=== PATIENT | male | born 1945 | race Caucasian/White ===

== ENCOUNTER 2017-04-26 12:36 | Observation (INO) | payer MEDICARE ==
[2017-04-26 13:13] VITALS: BMI 33.1
[2017-04-26 13:45] LABS: BASO % 0.3 % (0.0-2.0); EOS % 0.1 % (0.0-4.0); HEMATOCRIT 45.2 % (35.0-51.0); LYMPH # 0.8 K/uL (1.0-4.3); LYMPH % 10.2 % (20.0-40.0); MEAN CELL VOLUME 86.2 fL (80.0-94.0); MEAN CORPUSCULAR HEMOGLOBIN 28.6 pg (27.0-31.0); MEAN CORPUSCULAR HGB CONC 33.1 g/dL (33.0-37.0); MEAN PLATELET VOLUME 9.5 fL (7.2-11.7); MONO # 0.4 K/uL (0.0-0.8); MONO % 4.9 % (0.0-10.0); NRBC % 0.1 % (0.0-2.0); RED CELL DISTRIBUTION WIDTH 14.2 % (11.5-14.5); WHITE BLOOD COUNT 7.9 K/uL (4.8-10.8)
[2017-04-26 13:55] LABS: CHLORIDE 98 mmol/L (98-107)
[2017-04-26 13:56] LABS: SODIUM 135 mmol/L (132-148)
[2017-04-26 13:58] LABS: ALB/GLOB RATIO 1.7 (1.0-2.1); AST/SGOT 34 U/L (17-59); BILIRUBIN,TOTAL 0.9 mg/dL (0.2-1.3); BLOOD UREA NITROGEN 23 mg/dL (9-20); CARBON DIOXIDE 24 mmol/L (22-30); CHOLESTEROL 124 mg/dL (0-199); GFR AFRICAN-AMERICAN > 60; TOTAL PROTEIN 7.8 g/dL (6.3-8.3)
[2017-04-26 13:59] LABS: ALKALINE PHOSPHATASE 90 U/L (38-126); ALT/SGPT 38 U/L (21-72); CALCIUM 9.6 mg/dl (8.6-10.4); GLUCOSE,RANDOM 124 mg/dL (75-110)
--- NOTE | 2017-04-26 14:06 | C.PDOC ---
History Of Present Illness 72 y/o/ male presents to the ED with complains of elevated blood pressure. Pt had acute onset dizziness and vomiting at 0400 this morning. Pt couldn't quantify blood pressure. No medications taken. Denies LOC, headache, chest pain , SOB or any other complaints. Time Seen by Provider: 04/26/17 13:20 Chief Complaint (Nursing): Dizziness/Lightheaded History Per: Patient History/Exam Limitations: no limitations Onset/Duration Of Symptoms: Hrs Current Symptoms Are (Timing): Still Present Fall Associated With With Symptoms: No Severity: Mild Recent travel outside of the [place]: No - Symptoms Of CVA Recent Head Trauma: No Past Medical History Reviewed: Historical Data, Nursing Documentation, Vital Signs Vital Signs: Last Vital Signs Temp 97.8 F 04/26/17 14:10 Pulse 86 04/26/17 14:10 Resp 18 04/26/17 14:10 BP 144/88 04/26/17 14:10 Pulse Ox 99 04/26/17 15:55 - Medical History PMH: HTN, Hypercholesterolemia Denies: Chronic Kidney Disease Surgical History: Appendectomy - [facility] Procedures COLONOSCOPY (07/26/15) Family History: States: Unknown Family Hx - Social History Hx Alcohol Use: No Hx Substance Use: No - Immunization History Hx Tetanus Toxoid Vaccination: No Hx Influenza Vaccination: No Hx Pneumococcal Vaccination: No Review Of Systems Except As Marked, All Systems Reviewed And Found Negative. Constitutional: Negative for: Fever Cardiovascular: Negative for: Chest Pain Respiratory: Negative for: Shortness of Breath Gastrointestinal: Positive for: Vomiting. Negative for: Abdominal Pain Neurological: Positive for: Dizziness. Negative for: Headache Physical Exam - Physical Exam Appears: Non-toxic, In Acute Distress (moderate), Other (vertiginous, nauseated) Skin: Warm, Dry, No Rash Head: Atraumatic, Normacephalic Eye(s): bilateral: Normal Inspection, PERRL, EOMI Oral Mucosa: Moist Neck: Normal, Normal ROM, No Supple Chest: Symmetrical Cardiovascular: Rhythm Regular, No Murmur Respiratory: Normal Breath Sounds, No Rales, No Rhonchi, No Wheezing Gastrointestinal/Abdominal: Soft, No Tenderness Extremity: Normal ROM Extremity: Bilateral: Atraumatic Neurological/Psych: Oriented x3, Normal Speech, Normal Cognition, Normal Motor, Normal Sensation ED Course And Treatment - Laboratory Results Result Diagrams: 04/26/17 13:36 04/26/17 13:36 Lab Interpretation: Normal ECG: Interpreted By Me ECG Rhythm: Sinus Rhythm ECG Interpretation: Normal Rate From EC O2 Sat by Pulse Oximetry: 99 Pulse Ox Interpretation: Normal - Radiology CXR: Interpreted by Me CXR Interpretation: Yes: No Acute Disease - Other Rad head CT X-Ray: Read By Radiologist (neg) - CT Scan/US CT head Other Rad Studies (CT/US): Read By Radiologist, Radiology Report Reviewed CT/US Interpretation: FINDINGS: HEMORRHAGE: No intracranial hemorrhage. BRAIN : No mass effect or edema. Mild atrophy consistent with age. Mild remote ischemic change in basal ganglia bilaterally. No evidence of acute infarct. VENTRICLES: Unremarkable. No hydrocephalus. CALVARIUM: Unremarkable. PARANASAL SINUSES: Unremarkable as visualized. No significant inflammatory changes. MASTOID AIR CELLS: Unremarkable as visualized. No inflammatory changes. OTHER FINDINGS: None. IMPRESSION: No intracranial mass, hemorrhage or evidence of acute infarct. Mild atrophy and remote bilateral basal gangliar ischemic change. . Progress Note: Plan: CT head, EKG, labs, CXR, anitvert, pepcid, zofran, BGL Reevaluation Time: 15:53 Reassessment Condition: Unchanged (persistent n/v/vertigo, valium and more zofran ordered) - Physician Consult Information Outcome Of Conversation: 1600: d/w Dr. 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 Consider Neuro consult PRN Critical Care Time - Critical Care Note Total Time (in mins): 90 Documented critical care: time excludes all time spent performing seperately billable procedures. Medical Decision Making Medical Decision Making: acute vertigo no cerebellar infarct noted normal ear exams. Disposition Doctor Will See Patient In The: Hospital Counseled Patient/Family Regarding: Studies Performed, Diagnosis - Disposition Disposition: HOSPITALIZED Disposition Time: 15:55 Condition: FAIR - Clinical Impression Clinical Impression: Vertigo - Scribe Statement The provider has reviewed the documentation as recorded by the Willard Alvarado Provider Attestation: All medical record entries made by the Bebeibradha were at my direction and personally dictated by me. I have reviewed the chart and agree that the record accurately reflects my personal performance of the history, physical exam, medical decision making, and the department course for this patient. I have also personally directed, reviewed, and agree with the discharge instructions and disposition.
--- NOTE | 2017-04-26 14:46 | RAD ---
HISTORY: Vertigo. Admission. Portable semi upright study 13:50. COMPARISON: No prior. FINDINGS: LUNGS: No active pulmonary disease. PLEURA: No significant pleural effusion identified, no pneumothorax apparent. CARDIOVASCULAR: No radiographic findings to suggest acute or significant cardiovascular disease. OSSEOUS STRUCTURES: No significant abnormalities. VISUALIZED UPPER ABDOMEN: Normal. OTHER FINDINGS: None. IMPRESSION: No active disease.
--- NOTE | 2017-04-26 15:07 | CT ---
PROCEDURE: CT HEAD WITHOUT CONTRAST. HISTORY: HTN, acute vertigo, ? cerebellar COMPARISON: None available. TECHNIQUE: Axial computed tomography images were obtained through the head/brain without intravenous contrast. Radiation dose: Total exam DLP = 1422.33 mGy-cm. This CT exam was performed using one or more of the following dose reduction techniques: Automated exposure control, adjustment of the mA and/or kV according to patient size, and/or use of iterative reconstruction technique. FINDINGS: HEMORRHAGE: No intracranial hemorrhage. BRAIN: No mass effect or edema. Mild atrophy consistent with age. Mild remote ischemic change in basal ganglia bilaterally. No evidence of acute infarct. VENTRICLES: Unremarkable. No hydrocephalus. CALVARIUM: Unremarkable. PARANASAL SINUSES: Unremarkable as visualized. No significant inflammatory changes. MASTOID AIR CELLS: Unremarkable as visualized. No inflammatory changes. OTHER FINDINGS: None. IMPRESSION: No intracranial mass, hemorrhage or evidence of acute infarct. Mild atrophy and remote bilateral basal gangliar ischemic change. .
[2017-04-26] MEDS ORDERED: diaZEpam 10 mg/2 ml Inj IVP ONE (15:50)
--- NOTE | 2017-04-26 22:43 | CP.PCM.HP ---
History of Present Illness - History of Present Illness History of Present Illness: COMPREHENSIVE HISTORY & PHYSICAL EXAM HPI 72 y/o/ male presents to the ED with complains of elevated blood pressure. Pt had acute onset dizziness and vomiting at 0400 this morning. Pt couldn't quantify blood pressure. No medications taken. Denies LOC, headache, chest pain , SOB or any other complaints. EVERYTIME PT MOVED THE HEAD PT HAS SEVERE VERTIGO A/W NAUSEA PAST HIST. PERSONAL HIST: Smoking. N Alcohol. N Allergy N Travel_- . FAMILY HIST : SISTER HAS VERTIGO ROS : Constitutional: Negative for weight change, chills, night sweats, fatigue and usage of assist device. Eyes: Negative for redness, swelling, itching, discharge, vision changes, blurry vision, double vision, glaucoma, cataracts, Ears: Negative for hearing loss, ringing, , tinnitus, vertigo Nose: Negative for rhinorrhea, stuffiness, sniffing, itching, postnasal drip, discoloration, nasal congestion and epistaxis. Throat: Negative for throat clearing, sore throat, hoarseness, difficulty swallowing and difficulty speaking. Respiratory: Negative for cough, chest tightness, sputum or phlegm, chronic cough, hemoptysis, wheezing, snoring at night, pleuritic chest pain and daytime somnolence. Cardiovascular: Negative for chest pain, palpitations, orthopnea, PND, Edema of legs, leg cramps, angina, claudication, , irregular heartbeat, Neurology: Negative for irritability, muscle weakness, numbness and tingling, seizures, tremors, migraines, slurred speech, syncope, memory loss, mood changes , recurrent headaches Gastrointestinal: Negative for difficulty swallowing, diarrhea, constipation, black stools, rectal bleeding, nausea, flatulence, reflux, poor appetite, changes in bowel habits, abdominal pain Genitourinary: Negative for frequent urination, hematuria, discharge, incontinence, urinary retention, frequent UTI, Psychiatric: Negative for depression, anxiety/panic, suicidal tendencies, Musculoskeletal: Negative for swollen joints, back pain, , neck pain, morning stiffness of joints, . Skin: Negative for rash, ulcers, itching, dry skin and pigmented lesions. P/E: Constitutional: Appears stated age and in no apparent distress. Head: Normocephalic. Ears: External ear canals patent without inflammation. Tympanic membranes intact with normal light reflex and landmark. Eyes: Pupils are central, bilaterally equal, symmetrical and reacts to light with normal movements and no icterus or pallor. Nose: External nares are patent. Mucosa is pink Mouth-Throat: Good general appearance and condition. No post-pharyngeal/oropharyngeal erythema and tonsillar hypertrophy. Good dental hygiene. Neck-Lymphatic: Neck is supple with normal ROM, no thyromegaly, lymph nodes or masses. JVD is normal with no carotid bruit. Lungs: Clear to percussion and auscultation with bilateral normal air entry. Cardiovascular: S1 and S2 are normal with no murmurs, gallops and rub. GI Exam: No hepatomegaly. Abdomen is soft and non-tender. No Organomegaly , masses or hernias are evident and bowel sounds are normal and active. Neurology: Higher function and all cranial nerves intact, with no gross motor or sensory deficit. Superficial and deep reflexes are normal with downwards planters. No cerebellar deficit with normal gait. Musculoskeletal: No tender spots with normal curvature of the spine with no swelling or restricted ROM of the small and large joints. Extremities: Homans sign absent. Intact pulses with no pitting edema, calf tenderness or skin color changes. Skin: No rash, eruptions or abnormal skin pigmentation LAB/RADIOLOGY: ASSESMENT : ACUTE LABRYNTHITIS WITH POSITIONAL VERTIGO HTN PLAN: BED REST ANTIVERT Present on Admission - Present on Admission Any Indicators Present on Admission: No Past Patient History - Past Medical History & Family History Past Medical History?: Yes - Past Social History Smoking Status: Never Smoked - CARDIAC Hx Hypercholesterolemia: Yes Hx Hypertension: Yes - PULMONARY Hx Respiratory Disorders: No - NEUROLOGICAL Hx Neurological Disorder: No - HEENT Hx HEENT Problems: No - RENAL Hx Chronic Kidney Disease: No - ENDOCRINE/METABOLIC Hx Endocrine Disorders: Yes Hx Diabetes Mellitus Type 2: Yes - HEMATOLOGICAL/ONCOLOGICAL Hx Blood Disorders: No - INTEGUMENTARY Hx Dermatological Problems: No - MUSCULOSKELETAL/RHEUMATOLOGICAL Hx Musculoskeletal Disorders: No Hx Falls: No - GASTROINTESTINAL Hx Gastrointestinal Disorders: No - GENITOURINARY/GYNECOLOGICAL Hx Genitourinary Disorders: No - PSYCHIATRIC Hx Substance Use: No - SURGICAL HISTORY Hx Appendectomy: Yes (1965) Hx Cholecystectomy: Yes (1999) - ANESTHESIA Hx Anesthesia: Yes Hx Anesthesia Reactions: No Hx Malignant Hyperthermia: No Meds Allergies/Adverse Reactions: Allergies Allergy/AdvReac Type Severity Reaction Status Date / Time No Known Allergies Allergy Verified 07/26/15 07:57 Results - Vital Signs Recent Vital Signs: Last Vital Signs Temp 97.8 F 04/26/17 14:10 Pulse 82 04/26/17 18:12 Resp 18 04/26/17 18:12 BP 141/88 04/26/17 18:12 Pulse Ox 95 04/26/17 18:12 - Labs Result Diagrams: 04/26/17 13:36 04/26/17 13:36 Labs: Laboratory Results - last 24 hr 04/26/17 04/26/17 20:06 21:47 POC Glucose (mg/dL) 127 H Total Creatine Kinase 109 CK-MB (Mass) 0.83 Troponin I, Quant < 0.0120
[2017-04-27 00:27] VITALS: RESP 20
[2017-04-27 07:18] VITALS: TEMP 97.8; O2SAT 95
[2017-04-27] MEDS ORDERED: Pantoprazole 20 mg EC Tab PO SCH (10:00)
--- NOTE | 2017-04-27 13:45 | CP.PCM.PN ---
Subjective - Date & Time of Evaluation Date of Evaluation: 04/27/17 Time of Evaluation: 13:44 - Subjective Subjective: LESS VERTIGO NAUSEA VS STABLE Objective - Vital Signs/Intake and Output Vital Signs (last 24 hours): Temp Pulse Resp BP Pulse Ox 97.8 F 72 20 136/87 95 04/27/17 07:14 04/27/17 07:14 04/27/17 07:14 04/27/17 07:14 04/27/17 07:14 - Medications Medications: Current Medications Amlodipine Besylate (Norvasc) 5 mg PO DAILY [facility] Last Admin: 04/27/17 10:43 Dose: 5 mg Aspirin (Aspirin Chewable) 81 mg PO DAILY [facility] Last Admin: 04/27/17 10:43 Dose: 81 mg Cyanocobalamin (Vitamin B12 100 Mcg Tab) 250 mcg PO DAILY [facility] Diazepam (Valium) 5 mg PO Q6 PRN PRN Reason: Anxiety Last Admin: 04/27/17 00:37 Dose: 5 mg Hydrochlorothiazide (Hydrodiuril) 25 mg PO DAILY [facility] Last Admin: 04/27/17 10:44 Dose: 25 mg Loratadine (Claritin) 10 mg PO DAILY [facility] Last Admin: 04/27/17 10:45 Dose: Not Given Losartan Potassium (Cozaar) 100 mg PO DAILY [facility] Last Admin: 04/27/17 10:44 Dose: 100 mg Meclizine HCl (Antivert) 50 mg PO Q8 PRN PRN Reason: Dizziness Last Admin: 04/26/17 21:47 Dose: 50 mg Pantoprazole Sodium (Protonix Ec Tab) 20 mg PO DAILY [facility] Last Admin: 04/27/17 10:43 Dose: 20 mg Rosuvastatin Calcium (Crestor) 10 mg PO HS [facility] Last Admin: 04/26/17 21:47 Dose: 10 mg Sitagliptin Phosphate (Januvia) 100 mg PO DAILY [facility] Last Admin: 04/27/17 10:43 Dose: 100 mg - Labs Labs: PT 11.7 SECONDS (9.7-12.2) 04/26/17 13:36 INR 1.0 04/26/17 13:36 APTT 29 SECONDS (21-34) 04/26/17 13:36
--- NOTE | 2017-04-27 14:31 | CP.PCM.PN ---
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 Pt seen today states feels better, no further episode of vertigo since admission , denies any chest pain, sob, dizziness, palpitations oob ambulating without any issues , wants to go emma e troponin x 3 - negative Objective - Vital Signs/Intake and Output Vital Signs (last 24 hours): Temp Pulse Resp BP Pulse Ox 97.8 F 72 20 136/87 95 04/27/17 07:14 04/27/17 07:14 04/27/17 07:14 04/27/17 07:14 04/27/17 07:14 Intake and Output: 04/27/17 04/27/17 06:59 18:59 Intake Total 200 Balance 200 - Medications Medications: Current Medications Amlodipine Besylate (Norvasc) 5 mg PO DAILY [facility] Last Admin: 04/27/17 10:43 Dose: 5 mg Aspirin (Aspirin Chewable) 81 mg PO DAILY [facility] Last Admin: 04/27/17 10:43 Dose: 81 mg Cyanocobalamin (Vitamin B12 100 Mcg Tab) 250 mcg PO DAILY [facility] Diazepam (Valium) 5 mg PO Q6 PRN PRN Reason: Anxiety Last Admin: 04/27/17 00:37 Dose: 5 mg Hydrochlorothiazide (Hydrodiuril) 25 mg PO DAILY [facility] Last Admin: 04/27/17 10:44 Dose: 25 mg Loratadine (Claritin) 10 mg PO DAILY [facility] Last Admin: 04/27/17 10:45 Dose: Not Given Losartan Potassium (Cozaar) 100 mg PO DAILY [facility] Last Admin: 04/27/17 10:44 Dose: 100 mg Meclizine HCl (Antivert) 50 mg PO Q8 PRN PRN Reason: Dizziness Last Admin: 04/26/17 21:47 Dose: 50 mg Pantoprazole Sodium (Protonix Ec Tab) 20 mg PO DAILY [facility] Last Admin: 04/27/17 10:43 Dose: 20 mg Rosuvastatin Calcium (Crestor) 10 mg PO HS [facility] Last Admin: 04/26/17 21:47 Dose: 10 mg Sitagliptin Phosphate (Januvia) 100 mg PO DAILY [facility] Last Admin: 04/27/17 10:43 Dose: 100 mg - Labs Labs: PT 11.7 SECONDS (9.7-12.2) 04/26/17 13:36 INR 1.0 04/26/17 13:36 APTT 29 SECONDS (21-34) 04/26/17 13:36 - Constitutional Appears: Well, No Acute Distress - Respiratory Exam Respiratory Exam: NORMAL BREATHING PATTERN - Cardiovascular Exam Cardiovascular Exam: REGULAR RHYTHM - Neurological Exam Neurological Exam: Alert, Awake, Oriented x3 Assessment and Plan - Assessment and Plan (Free Text) Assessment: A/P 72 yr old male admitted for vertigo /HTN vss - stable ct head- negative for hemorrhage and acute infarct -(No intracranial mass, hemorrhage or evidence of acute infarct. Mild atrophy and remote bilateral basal gangliar ischemic change. ). D/W Dr. Bond, stable for discharge home today and f/u with PMD and Dr. Bond office - Discharge instructions discussed with patient and daughter at bedside , who understands and agrees with plan Pt instructed to returns ED if symptoms returns or any other concerning symptoms
[2017-04-27 16:12] VITALS: BP 151/85; PULSE 71
--- NOTE | 2017-04-28 14:41 | CP.PCM.DIS ---
Provider - Provider Date of Admission: 04/26/17 15:52 Attending physician: Felicita Bond MD Time Spent in preparation of Discharge (in minutes): 30 Hospital Course - Lab Results Lab Results: Most Recent Lab Values WBC 7.9 K/uL (4.8-10.8) 04/26/17 13:36 RBC 5.25 Mil/uL (4.40-5.90) 04/26/17 13:36 Hgb 15.0 g/dL (12.0-18.0) 04/26/17 13:36 Hct 45.2 % (35.0-51.0) 04/26/17 13:36 MCV 86.2 fL (80.0-94.0) 04/26/17 13:36 MCH 28.6 pg (27.0-31.0) 04/26/17 13:36 MCHC 33.1 g/dL (33.0-37.0) 04/26/17 13:36 RDW 14.2 % (11.5-14.5) 04/26/17 13:36 Plt Count 158 K/uL (130-400) 04/26/17 13:36 MPV 9.5 fL (7.2-11.7) 04/26/17 13:36 Neut % (Auto) 84.5 % (50.0-75.0) H 04/26/17 13:36 Lymph % (Auto) 10.2 % (20.0-40.0) L 04/26/17 13:36 Gordon % (Auto) 4.9 % (0.0-10.0) 04/26/17 13:36 Eos % (Auto) 0.1 % (0.0-4.0) 04/26/17 13:36 Baso % (Auto) 0.3 % (0.0-2.0) 04/26/17 13:36 Neut # 6.7 K/uL (1.8-7.0) 04/26/17 13:36 Lymph # 0.8 K/uL (1.0-4.3) L 04/26/17 13:36 Gordon # 0.4 K/uL (0.0-0.8) 04/26/17 13:36 Eos # 0.0 K/uL (0.0-0.7) 04/26/17 13:36 Baso # 0.0 K/uL (0.0-0.2) 04/26/17 13:36 PT 11.7 SECONDS (9.7-12.2) 04/26/17 13:36 INR 1.0 04/26/17 13:36 APTT 29 SECONDS (21-34) 04/26/17 13:36 Sodium 135 mmol/L (132-148) 04/26/17 13:36 Potassium 4.0 mmol/L (3.6-5.2) 04/26/17 13:36 Chloride 98 mmol/L (98-107) 04/26/17 13:36 Carbon Dioxide 24 mmol/L (22-30) 04/26/17 13:36 Anion Gap 17 (10-20) 04/26/17 13:36 BUN 23 mg/dL (9-20) H 04/26/17 13:36 Creatinine 1.1 MG/DL (0.8-1.5) 04/26/17 13:36 Est GFR ( Amer) > 60 04/26/17 13:36 Est GFR (Non-Af Amer) > 60 04/26/17 13:36 POC Glucose (mg/dL) 118 mg/dL (65-110) H 04/27/17 11:07 Random Glucose 124 mg/dL (75-110) H 04/26/17 13:36 Hemoglobin A1c 5.9 % (4.2-6.5) 04/26/17 13:54 Calcium 9.6 mg/dl (8.6-10.4) 04/26/17 13:36 Total Bilirubin 0.9 mg/dL (0.2-1.3) 04/26/17 13:36 AST 34 U/L (17-59) 04/26/17 13:36 ALT 38 U/L (21-72) 04/26/17 13:36 Alkaline Phosphatase 90 U/L (38-126) 04/26/17 13:36 Total Creatine Kinase 121 U/L (55-170) 04/27/17 11:42 CK-MB (Mass) 0.95 ng/mL (0.0-3.38) 04/27/17 11:42 Troponin I 0.0120 ng/mL (0.00-0.120) 04/26/17 13:36 Troponin I, Quant < 0.0120 ng/mL (0.00-0.120) 04/27/17 11:42 NT-Pro-B Natriuret Pep 47.7 pg/mL (0-900) 04/26/17 13:36 Total Protein 7.8 g/dL (6.3-8.3) 04/26/17 13:36 Albumin 4.9 g/dL (3.5-5.0) 04/26/17 13:36 Globulin 2.9 gm/dL (2.2-3.9) 04/26/17 13:36 Albumin/Globulin Ratio 1.7 (1.0-2.1) 04/26/17 13:36 Triglycerides 109 mg/dL (0-149) 04/26/17 13:36 Cholesterol 124 mg/dL (0-199) 04/26/17 13:36 LDL Cholesterol Direct 70 mg/dL (0-129) 04/26/17 13:36 HDL Cholesterol 46 mg/dL (30-70) 04/26/17 13:36 - Hospital Course Hospital Course: 2 y/o/ male presents to the ED with complains of elevated blood pressure. Pt had acute onset dizziness and vomiting at 0400 this morning. Pt couldn't quantify blood pressure. No medications taken. Denies LOC, headache, chest pain , SOB or any other complaints. EVERYTIME PT MOVED THE HEAD PT HAS SEVERE VERTIGO A/W NAUSEA PT WAS OBSERVED FOR 24 HRS . TNI NEG FELT BETTER D/C HOME OUT PT NEURO/CARDIAC W/U Discharge Plan - Follow Up Plan Condition: FAIR Disposition: HOME/ ROUTINE Instructions: Vertigo (DC), Cholesterol and Your Health (GEN), Chronic Hypertension (DC), Hyperlipidemia (DC) Additional Instructions: f/u with PMD in 3-5 days f/u with Dr. Bond office next - call for appointment -[address] [place] [address], Resume all home medications Referrals: Dale Jaramillo MD [Medical Doctor] - Felicita Bond MD [Staff Provider] -
--- NOTE | 2017-04-30 12:18 | CARD ---
APPROVED REPORT EKG Measurement Heart [id number] <Conclusion> Sinus rhythm with occasional premature ventricular complexes Low voltage QRS Borderline ECG
--- NOTE | 2017-05-04 17:50 | CARD ---
APPROVED REPORT EKG Measurement Heart [id number] <Conclusion> Normal sinus rhythm Low voltage QRS Borderline ECG
== END 2017-04-27 15:00 | disposition home or self-care (01) ==
LOC: C.ER 12:36 → C.9E 15:52 → C.5T 17:31
PROVIDERS: ADMIT Internal Medicine Cardiovascular Disease; ATTEND Internal Medicine Cardiovascular Disease
DX: I10 Essential (primary) hypertension (principal); R42 Dizziness and giddiness; R11.2 Nausea with vomiting, unspecified
CPT/HCPCS: 36415; 70450; 71010; 80053; 80061; 82948; 83036; 83880; 84484; 85025; 85610; 85730; 96374; 96375; 96376; 99285; G0378; J2405